=== PATIENT | male | born 2005 | race Caucasian/White ===

== ENCOUNTER 2025-01-13 12:30 | Emergency (ER) | payer OTHER, SELFPAY ==
[2025-01-13 12:37] VITALS: BP 122/83
--- NOTE | 2025-01-13 13:28 | ED.GENMED ---
History of Present Illness
General
Chief Complaint: Allergic Reaction
Source: patient
Exam Limitations: none
Time Seen by Provider: 01/13/25 13:11
History of Present Illness
History of Present Illness:
19 year old male presents with possible allergic reaction to calamari he at one hour prior to my exam. Shortly after eating this he developed numbness in his wrist his core his tongue and his extremities. He denied any rash nausea vomiting or
trouble breathing. He felt like he could not drive. He describes sensation that he is going to . He is concerned he may have a reaction or ate improperly cooked food. No other complaints at this time
Phy Exam
Physical Exam
Physical Exam:
General: Well-appearing male no acute respiratory distress
HEENT: Normal cephalic atraumatic posterior pharynx patent tongue is symmetric no swelling neck is supple heart: Regular rate and rhythm
Lungs: Clear no wheeze
Skin warm no rash
Abdomen soft nontender
Extremities: No cyanosis or edema
Course
Vital Signs
Initial and Last Documented VS:
Initial Vital Signs
Pulse Resp BP Pulse Ox
88 20 122/83 99
01/13/25 12:37 01/13/25 12:37 01/13/25 12:37 01/13/25 12:37
Last Documented Vital Signs
Pulse Resp BP Pulse Ox
88 20 122/83 99
01/13/25 12:37 01/13/25 12:37 01/13/25 12:37 01/13/25 12:37
MDM/Problems Addressed
Differential Diagnosis Includes:
Patient had some type of reaction after eating calamari. There was never a rash or shortness of breath. There was never vomiting. He felt numb all over and he felt like he was going to . Patient concerned about out potential toxin he ingested
from improperly cooked calamari. No indication for epinephrine at this point. He drank a bunch of water and is now feeling better. Offered Benadryl however he declined. No indication for any further intervention. Stable for discharge
*Pulse Oximetry
SaO2: 99
Oxygen Mode of Delivery: Room air
Patient hypoxic: no
*Critical Care Note
Total Time (30-74mins, 75-104mins- exclusive of procedures): Not Applicable
ED Attending Note
-
Portions of this chart may have been created with voice recognition software.� Occasional wrong word or��sound alike� substitutions may have occurred due to the inherent limitations of voice recognition software.
Discharge Plan
Departure
Patient Disposition: Home (Routine Discharge)
Date of Disposition: 01/13/25
Time of Disposition: 13:32
Patient with high blood pressure during this ER visit?: No
Discharge Problem:
adverse reaction to ingested food
Prescriptions:
No Action
loratadine [Claritin RediTabs] 5 MG tablet,disintegrating
5 mg PO DAILY
clindamycin phosphate [Cleocin] 150 MG/1 ML solution
150 mg PO Q6 Qty: 400 0RF
Referrals:
UNKNOWN - PT DOES,NOT KNOW [Family Provider]
Activity Restrictions/Additional Instructions:
Stay hydrated. Please return here for worsening symptoms you COVID develop a rash you may consider Benadryl.
Interventions
Interventions:
*Risk Screen - Suicide Last Done: 01/13/25 12:37
*General Assessment Last Done: 01/13/25 12:37
*Neglect/Abuse Screening Last Done: 01/13/25 12:37
Discharge Date and Time
Print Language: FRENCH
[2025-01-13 14:22] VITALS: BP 132/55
== END 2025-01-13 14:23 | disposition home or self-care (01) ==
LOC: EMR 12:30
PROVIDERS: EMERGENCY PHYSICIAN Emergency Medicine
DX: T78.19XA Other adverse food reactions, not elsewhere classified, initial encounter (principal); X58.XXXA Exposure to other specified factors, initial encounter
CPT/HCPCS: 99282